=== PATIENT | male | born 2000 | race African-American/Black ===

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

== ENCOUNTER 2023-12-29 23:16 | Emergency (ER) | payer MEDICAID ==
[~2023-12-29] VITALS: Ht 188 cm; Wt 113.4 kg
[~2023-12-29 23:16] MED LIST changes: +ALBU90AE INH; -ALBUTEROL; +P20 PO; +PANT40TA51 MT
[2023-12-29 23:29] VITALS: BP 121/71; PULSE 68; RESP 16; TEMP 98.6; O2SAT 98
[2023-12-29 23:54] LABS: HEMATOCRIT. 36.7 % (42.0-52.0); HEMOGLOBIN. 12.1 g/dL (14.0-18.0); MEAN CORPUSCULAR HEMOGLOBIN 27.1 pg (28.0-32.0); MEAN CORPUSCULAR HGB CONC 33.1 g/dL (31.0-37.0); MEAN PLATELET VOLUME 12.2 fl (7.4-10.4); RED BLOOD CELL COUNT 4.47 mill/uL (4.7-6.1); RED CELL DISTRIBUTION WIDTH 15.6 % (11.6-14.6); WHITE BLOOD COUNT 8.1 x1000/uL (4.5-11.0)
[2023-12-30 00:09] LABS: PLATELET 43 x1000/uL (130-400)
[2023-12-30 00:10] LABS: DIFFERENTIAL COMMENT 1
[2023-12-30 08:38] LABS: PLATELET ESTIMATE MARKEDLY DECREASED
== END 2023-12-30 01:40 | disposition home or self-care (01) ==
LOC: ER 23:16
DX: R04.0 Epistaxis (principal); J45.909 Unspecified asthma, uncomplicated; Z79.899 Other long term (current) drug therapy
CPT/HCPCS: 85025; 36415; 99283; Z7610